=== PATIENT | male | born 1980 | race Caucasian/White ===

== ENCOUNTER 2018-05-18 11:29 | Emergency (ER) | payer OTHER, MEDICAID ==
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
[2018-05-18 14:01] VITALS: BP 124/80
--- NOTE | 2018-05-18 15:13 | ASMTCMCOM ---
CM Note CM Note Notes: Patient accompanied by one of his caretakers at "[facility]" where patient resides in [place]. Heriberto (registered associate) was able to contact patient's mother Leon (guardian) to inform her of ER vist and discharge home. This CM left message with Leon regarding patient's visit as well Date Signed: 05/18/2018 03:13 PM Electronically Signed By:Leslie Nguyen RN
== END 2018-05-18 13:59 | disposition home or self-care (01) ==
LOC: EDUNIT#
DX: S16.1XXA Strain of muscle, fascia and tendon at neck level, initial encounter (principal); S09.90XA Unspecified injury of head, initial encounter; V57.6XXA Passenger in pick-up truck or van injured in collision with fixed or stationary object in traffic accident, initial encounter; Y92.9 Unspecified place or not applicable

== ENCOUNTER → 2018-06-17 | Outpatient (CLI) | payer OTHER, MEDICAID ==
[~2018-06-17] MED LIST: GADOBUTROL 10 ML VIAL IVP ONE
== END ==
LOC: FIMAGING 12:19
PROVIDERS: ATTEND Family Medicine
DX: R93.89 Abnormal findings on diagnostic imaging of other specified body structures (principal); M89.9 Disorder of bone, unspecified; M50.321 Other cervical disc degeneration at C4-C5 level
CPT/HCPCS: 72156; A9585